=== PATIENT | female | born 1940 | race Caucasian/White ===

== ENCOUNTER 2024-01-05 15:21 | Emergency (ER) | payer MEDICARE ==
[2024-01-05] VITALS (9 sets, daily range): BP systolic 113–171; BP diastolic 50–99
[~2024-01-05] VITALS: Ht 162.6 cm; Wt 56.0 kg
[2024-01-05 15:41] LABS: BASO% 0.2 % (0-3); EOS% 0.8 % (0-8); HEMATOCRIT 45.8 % (37.0-47.0); HEMOGLOBIN 14.8 g/dl (12.0-16.0); IMMATURE GRANULOCYTES 0.2 % (0.0-5.0); LYMPH% 8.3 % (15-41); MEAN CORPUSCULAR HGB 30.7 pG CALC (26.0-32.0); MEAN CORPUSCULAR HGB CONC 32.3 g/dL CAL (32.0-36.0); MONO% 6.4 % (2-13); NEUT# 14.38 thou/uL (2.00-7.15); NEUT% 84.1 % (42-76); RED BLOOD COUNT 4.82 mill/uL (4.20-5.60); RED CELL DISTRI WIDTH 13.3 % (11.5-15.5)
[2024-01-05 16:00] LABS: ALBUMIN 3.7 g/dL (3.2-5.0); ALKALINE PHOSPHATASE 73 u/l (38-126); ANION GAP 11 (6-22 (CALC)); BILIRUBIN, TOTAL 0.4 mg/dL (0.02-1.3); BUN 32 mg/dL (8-23); BUN/CREATININE RATIO 20 (12-20 (CALC)); CARBON DIOXIDE 23 mmol/l (22-30); CHLORIDE 113 mmol/l (95-108); CREATININE 1.6 mg/dL (0.5-1.0); ESTIMATED GFR 32 ML/MIN (>=90 (CALC)); LIPASE 294 u/l (23-300); POTASSIUM 3.9 mmol/l (3.5-5.1); SGOT/AST 25 u/l (9-36); SODIUM 143 mmol/l (137-146); TOTAL PROTEIN 6.5 g/dL (6.3-8.2)
[2024-01-05] MEDS ORDERED: CRESTOR40 MG PO (16:13)
[2024-01-05] MEDS ORDERED: LEVOTHYROXIN50 MCG PO (16:13)
[2024-01-05] MEDS ORDERED: PEPCID20 MG PO (16:14)
[2024-01-05] MEDS ORDERED: SERTRALINE100 MG PO (16:14)
[2024-01-05] MEDS ORDERED: MECLIZINE 2525 MG PO (16:16)
[2024-01-05] MEDS ORDERED: FLUTICASONE (16:17)
[2024-01-05] MEDS ORDERED: AMOX/K CLAV875 M1 PO (16:18)
[2024-01-05] MEDS ORDERED: CEPHALEXIN500 M1 PO (17:04)
[2024-01-05] MEDS ORDERED: ZOFRAN4 MG/TAB PO (17:06)
== END 2024-01-05 17:40 | disposition home or self-care (01) ==
LOC: ED 15:21
PROVIDERS: Family Medicine
DX: R11.2 Nausea with vomiting, unspecified (principal); T36.0X5A Adverse effect of penicillins, initial encounter; L03.116 Cellulitis of left lower limb; S81.802A Unspecified open wound, left lower leg, initial encounter; F41.9 Anxiety disorder, unspecified; X58.XXXA Exposure to other specified factors, initial encounter